=== PATIENT | male | born 1940 | race Caucasian/White ===

== ENCOUNTER 2017-03-23 17:12 | Inpatient (IN) | payer MEDICARE, BC ==
--- NOTE | 2017-03-23 17:53 | EDM.PDOC ---
ED HPI GENERAL MEDICAL PROBLEM - General Chief Complaint: General Stated Complaint: passed out/fell Time Seen by Provider: 03/23/17 17:30 Source of Information: Reports: Patient History Limitations: Reports: No Limitations - History of Present Illness INITIAL COMMENTS - FREE TEXT/NARRATIVE: Patient presents today to ER after a syncopal episode. He states he was out drilling holes in his [place] house and the "next thing I knew I was laying on the floor". Relates he had drilled about 6 holes, felt lightheaded while doing so. Does not believe he hit his head but has discomfort in his back and left wrist. States drank a pop after the event with eventual nausea and vomiting. Still feels lightheaded and nauseated. He denies any chest pain or shortness of breath. Not aware of any issues with his blood pressure. Relates that he had a bleeding ulcer a year ago and has intermittent blood in his stools since then but nothing for over a month. Stools have been normal consistency and color. He is no longer taking any PPIs. Is on coumadin for a remote blood clot. Otherwise, denies any health concerns. Onset: Today, Sudden Duration: Hour(s): Location: Reports: Back, Upper Extremity, Left Quality: Reports: Dull, Throbbing Severity: Mild Improves with: Reports: Rest Worsens with: Reports: Movement Associated Symptoms: Reports: Nausea/Vomiting, Syncope. Denies: Confusion, Chest Pain, Cough, Fever/Chills, Headaches, Shortness of Breath Left Lower Back Pain Score (Numeric/FACES): 7 Left Wrist Pain Score (Numeric/FACES): 7 - Related Data Allergies Allergy/AdvReac Type Severity Reaction Status Date / Time No Known Allergies Allergy Verified 12/12/15 09:09 Home Meds: Home Meds Ascorbic Acid [Vitamin C] 500 mg PO DAILY 12/11/15 [History] Aspirin [Halfprin] 81 mg PO DAILY 12/11/15 [History] Calcium Carbonate [Calcium] 500 mg PO DAILY 12/11/15 [History] Cholecalciferol (Vitamin D3) [Vitamin D3] 2,000 units PO DAILY 12/11/15 [History ] Warfarin [Coumadin] 7.5 mg PO DAILY 12/11/15 [History] Past Medical History HEENT History: Reports: Cataract 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 Gastrointestinal History: Reports: Hiatal Hernia Endocrine/Metabolic History: Reports: Hypoparathyroidism - Past Surgical History HEENT Surgical History: Reports: Cataract Surgery Endocrine Surgical History: Reports: Parathyroidectomy Musculoskeletal Surgical History: Reports: Knee Replacement Social & Family History - Tobacco Use Smoking Status *Q: Former Smoker Used Tobacco, but Quit: Yes Month Tobacco Last Used: 46 y.o - Caffeine Use Caffeine Use: Reports: Coffee - Recreational Drug Use Recreational Drug Use: No ED ROS GENERAL - Review of Systems Review Of Systems: See Below Constitutional: Denies: Fever, Chills HEENT: Denies: Ear Pain, Nose Pain, Throat Pain, Vertigo Respiratory: Denies: Shortness of Breath, Cough Cardiovascular: Reports: Lightheadedness. Denies: Chest Pain, Edema Endocrine: Reports: Fatigue GI/Abdominal: Reports: Nausea, Vomiting. Denies: Abdominal Pain, Black Stool, Bloody Stool : Reports: No Symptoms Musculoskeletal: Reports: Back Pain, Joint Pain Skin: Reports: Bruising, Wound (left side of low back) Neurological: Reports: Syncope, Weakness. Denies: Confusion, Headache ED EXAM, GENERAL - Physical Exam Exam: See Below Exam Limited By: No Limitations General Appearance: Alert, WD/WN, No Apparent Distress Eye Exam: Bilateral Eye: EOMI, Other (Patient's right pupil is irregular from previous cataract) Ears: Normal External Exam, Normal TMs Nose: Normal Inspection, Normal Mucosa, No Blood Throat/Mouth: Normal Inspection, Normal Oropharynx Head: Normocephalic Neck: Normal Inspection, Supple, Non-Tender Respiratory/Chest: No Respiratory Distress, Lungs Clear, Normal Breath Sounds Cardiovascular: Regular Rate, Rhythm, No Edema GI/Abdominal: Normal Bowel Sounds, Soft, Non-Tender Back Exam: Other (Tender to left lower lumbar region. Abrasion noted. No vertebral tenderness. ) Extremities: Other (bruising and swelling to left wrist, has fairly good range of motion ) Neurological: Alert, Oriented, CN II-XII Intact, No Motor/Sensory Deficits Psychiatric: Normal Affect, Normal Mood Skin Exam: Warm, Dry Course - Vital Signs Last Recorded V/S: Last Vital Signs Temp 97.5 F 03/23/17 17:13 Pulse 85 03/23/17 17:13 Resp 18 03/23/17 17:13 BP 95/44 L 03/23/17 17:13 Pulse Ox 98 03/23/17 17:13 - Orders/Labs/Meds Orders: Active Orders 24 hr Category Date Time Status Head wo Cont [CT] Stat Exams 03/23/17 17:25 Ordered Wrist 2V Lt [CR] Stat Exams 03/23/17 17:21 Ordered Labs: Laboratory Tests 03/23/17 03/23/17 03/23/17 Range/Units 17:30 17:30 17:30 WBC 11.1 H (5.0-10.0) 10^3/uL RBC 3.41 L (4.50-6.00) 10^6/uL Hgb 8.4 L (14.0-18.0) g/dL Hct 27.3 L (40.0-54.0) % MCV 80.1 L (82.0-94.0) fL MCH 24.6 L (27.0-32.0) pg MCHC 30.8 L (33.0-38.0) g/dL RDW Coeff of Jordin 14.5 (11.0-15.0) % Plt Count 245 (150-400) 10^3/uL Neut % (Auto) 79.6 (35-85) % Lymph % (Auto) 12.1 (10-55) % [place] % (Auto) 6.7 (0-16) % Eos % (Auto) 1.4 (0-5) % Baso % (Auto) 0.2 (0-3) % Neut # (Auto) 8.84 H (1.80-7.00) 10^3/uL Lymph # (Auto) 1.35 (1.00-4.80) 10^3/uL Fisher # (Auto) 0.75 (0.00-0.80) 10^3/uL Eos # (Auto) 0.16 (0.00-0.45) 10^3/uL Baso # (Auto) 0.02 10^3/uL PT 30.3 H (9.7-12.3) SEC INR 2.72 H (0.92-1.18) Sodium 142 (136-145) mEq/L Potassium 4.5 (3.5-5.0) mEq/L Chloride 106 (98-106) mEq/L Carbon Dioxide 25 (21-32) mmol/L BUN 22 H (7-18) mg/dL Creatinine 1.1 (0.7-1.3) mg/dL Est Cr Clr Drug Dosing 59.91 mL/min Estimated GFR (MDRD) > 60 (>=60) mL/min Glucose 117 H (75-99) mg/dL Calcium 8.5 (8.4-10.1) mg/dL Total Bilirubin 0.5 (0.0-1.0) mg/dL AST 25 (15-37) U/L ALT 28 (12-78) U/L Alkaline Phosphatase 88 (46-116) U/L Lactate Dehydrogenase 157 (100-190) U/L Creatine Kinase 88 (35-232) U/L Troponin I < 0.017 (0.00-0.06) ng/mL C-Reactive Protein < 0.2 L (0.2-0.8) mg/dL Total Protein 6.9 (6.4-8.2) g/dL Albumin 3.6 (3.4-5.0) g/dL - Re-Assessments/Exams Free Text/Narrative Re-Assessment/Exam: 03/23/17 17:57 EKG shows NSR. Hemoglobin 8.4. FOB negative. Departure - Departure Time of Disposition: 18:15 Disposition: Admitted As Inpatient 67 Condition: Fair Clinical Impression: Syncope, Anemia - Discharge Information Forms: ED Department Discharge - Problem List & Annotations (1) Anemia SNOMED Code(s): 310049311 Code(s): D64.9 - ANEMIA, UNSPECIFIED Status: Acute Priority: High Current Visit: Yes (2) Syncope SNOMED Code(s): 114544910 Code(s): R55 - SYNCOPE AND COLLAPSE Status: Acute Priority: High Current Visit: Yes Qualifiers: Encounter type: initial encounter - Problem List Review Problem List Initiated/Reviewed/Updated: Yes - My Orders Last 24 Hours: My Active Orders 03/23/17 17:21 Wrist 2V Lt [CR] Stat 03/23/17 17:25 Head wo Cont [CT] Stat - Assessment/Plan Admission H&P: Please use this note as an admission H&P Last 24 Hours: My Active Orders 03/23/17 17:21 Wrist 2V Lt [CR] Stat 03/23/17 17:25 Head wo Cont [CT] Stat Assessment:: Syncope Anemia Plan: Admit inpatient to Dr. Kelley. Will monitor neuro checks, repeat labs in am. FOBs x3. IV Protonix. IV NS at 75 ml/hr.
[2017-03-23 17:56] LABS: CHLORIDE,CL 106 mEq/L (98-106); SODIUM,NA 142 mEq/L (136-145)
[2017-03-23] MEDS ORDERED: Temazepam 15 MG Cap PO PRN (18:37)
[2017-03-23] MEDS ORDERED: Ondansetron 4 MG Tab.DIS PO PRN (18:37)
[2017-03-23] MEDS ORDERED: Sodium Chloride 0.9% 10 ML Syringe FLUSH PRN (18:37)
[2017-03-23] MEDS ORDERED: Ondansetron 4 MG/2 ML SDV IV PRN (18:37)
[2017-03-23] MEDS: Pantoprazole 40 MG Vial IVPUSH SCH (20:51)
[2017-03-23] MEDS: Acetaminophen 325 MG Tab PO PRN (20:54)
[2017-03-24] MEDS: Acetaminophen 325 MG Tab PO PRN ×3 (04:57→19:28)
[2017-03-24 07:11] LABS: CHLORIDE,CL 108 mEq/L (98-106); SODIUM,NA 142 mEq/L (136-145)
[2017-03-24] MEDS: Sodium Chloride 0.9% 1,000 ML IV SCH (07:43)
--- NOTE | 2017-03-24 11:54 | PCM.PN ---
- General Info Date of Service: 03/24/17 Admission Dx/Problem (Free Text): Anemia ?GI Bleed Functional Status: Reports: Pain Controlled, Tolerating Diet, Ambulating - Review of Systems General: Reports: Weakness, Fatigue. Denies: Fever HEENT: Reports: No Symptoms Pulmonary: Denies: Shortness of Breath, Cough, Wheezing Cardiovascular: Denies: Chest Pain, Edema, Lightheadedness Gastrointestinal: Denies: Abdominal Pain, Hematochezia, Melena, Nausea, Vomiting Genitourinary: Reports: No Symptoms Musculoskeletal: Reports: No Symptoms Skin: Reports: No Symptoms Neurological: Reports: No Symptoms - Patient Data Vitals - Most Recent: Last Vital Signs Temp 98.1 F 03/24/17 11:09 Pulse 70 03/24/17 11:09 Resp 16 03/24/17 11:09 BP 120/61 03/24/17 11:09 Pulse Ox 100 03/24/17 11:09 Weight - Most Recent: 205 lb 12.8 oz I&O - Last 24 Hours: Intake & Output 03/23/17 03/24/17 03/24/17 22:59 06:59 14:59 Intake Total 0 Balance 0 Lab Results Last 24 Hours: Laboratory Results - last 24 hr 03/24/17 03/24/17 03/24/17 Range/Units 06:55 06:55 07:00 WBC 6.9 (5.0-10.0) 10^3/uL RBC 3.01 L (4.50-6.00) 10^6/uL Hgb 7.3 L* (14.0-18.0) g/dL Hct 24.2 L (40.0-54.0) % MCV 80.4 L (82.0-94.0) fL MCH 24.3 L (27.0-32.0) pg MCHC 30.2 L (33.0-38.0) g/dL RDW Coeff of Jordin 14.5 (11.0-15.0) % Plt Count 203 (150-400) 10^3/uL Neut % (Auto) 63.4 (35-85) % Lymph % (Auto) 25.8 (10-55) % [place] % (Auto) 10.0 (0-16) % Eos % (Auto) 0.7 (0-5) % Baso % (Auto) 0.1 (0-3) % Neut # (Auto) 4.36 (1.80-7.00) 10^3/uL Lymph # (Auto) 1.78 (1.00-4.80) 10^3/uL [place] # (Auto) 0.69 (0.00-0.80) 10^3/uL Eos # (Auto) 0.05 (0.00-0.45) 10^3/uL Baso # (Auto) 0.01 10^3/uL Sodium 142 (136-145) mEq/L Potassium 3.6 (3.5-5.0) mEq/L Chloride 108 H (98-106) mEq/L Carbon Dioxide 24 (21-32) mmol/L BUN 21 H (7-18) mg/dL Creatinine 1.0 (0.7-1.3) mg/dL Est Cr Clr Drug Dosing 65.90 mL/min Estimated GFR (MDRD) > 60 (>=60) mL/min Glucose 116 H (75-99) mg/dL Calcium 7.9 L (8.4-10.1) mg/dL Blood Type O POSITIVE Gel Antibody Screen Negative Crossmatch See Detail Med Orders - Current: Current Medications Acetaminophen (Tylenol) 650 mg PO Q4H PRN PRN Reason: Pain (Mild 1-3)/fever Last Admin: 03/24/17 04:57 Dose: 650 mg Sodium Chloride (Normal Saline) 1,000 mls @ 75 mls/hr IV ASDIRECTED [facility] Last Admin: 03/24/17 07:43 Dose: 75 mls/hr Ondansetron HCl (Zofran Odt) 4 mg PO Q4H PRN PRN Reason: nausea, able to take PO Ondansetron HCl (Zofran) 4 mg IV Q4H PRN PRN Reason: Nausea/Vomiting Pantoprazole Sodium (Protonix Iv) 40 mg IVPUSH Q24H [facility] Last Admin: 03/23/17 20:51 Dose: 40 mg Sodium Chloride (Saline Flush) 10 ml FLUSH ASDIRECTED PRN PRN Reason: Keep Vein Open Temazepam (Restoril) 15 mg PO BEDTIME PRN PRN Reason: Sleep Warfarin Sodium (Coumadin) 7.5 mg PO DAILY@1200 [facility] - Exam General: Alert, Oriented HEENT: Mucous Membr. Moist/[place] Neck: Supple Lungs: Clear to Auscultation, Normal Respiratory Effort Cardiovascular: Regular Rate, Regular Rhythm GI/Abdominal Exam: Normal Bowel Sounds, Soft, Non-Tender - Problem List & Annotations (1) Anemia SNOMED Code(s): 580325797 Code(s): D64.9 - ANEMIA, UNSPECIFIED Status: Acute Priority: High Current Visit: Yes (2) Syncope SNOMED Code(s): 327417108 Code(s): R55 - SYNCOPE AND COLLAPSE Status: Acute Priority: High Current Visit: Yes Qualifiers: Encounter type: initial encounter - Problem List Review Problem List Initiated/Reviewed/Updated: Yes - My Orders Last 24 Hours: My Active Orders 03/23/17 19:05 Antiembolic Devices [RC] 1000,2200 [place] Hose [Antiembolic Hose] [OM.PC] Routine 03/24/17 07:00 RED BLOOD CELLS LP [BBK] Stat TYPE AND SCREEN [BBK] Stat 03/24/17 08:34 Blood Transfusion Reflex Orders [OM.PC] Routine Transfuse Red Blood Cells [COMM] Stat 03/24/17 08:36 Verify Patient Consent Obtain [RC] ASDIRECTED 03/24/17 11:45 Consult to Physician [CONS] Routine 03/24/17 11:46 Notify Provider Consults [RC] ASDIRECTED 03/24/17 12:00 Warfarin [Coumadin] 7.5 mg PO DAILY@1200 03/24/17 18:37 Carotid Comp [US] Stat 03/24/17 Dinner NPO After Midnight [Nothing per Oral After Midnight Diet] [DIET] 03/24/17 Lunch Clear Liquid Diet [DIET] 03/25/17 05:11 BASIC METABOLIC PANEL,BMP [CHEM] AM CBC WITH AUTO DIFF [HEME] AM 03/25/17 18:37 Echo Comp wo Cont [US] Stat - Assessment Assessment:: Weakness Anemia, ?GI Bleed Syncope - Plan Plan:: Patient states feeling better this am. Less lightheaded. Has been up to the bathroom without difficulty. No BMs as of yet to further test for blood. Denies abdominal pain. Blood pressure was low during the night at 87/50 while asleep, stable now at this time. Afebrile. Lab this am shows a hemoglobin of 7.3. Will type and screen and transfuse 2 units. Plan for EGD tomorrow. Continue IV Protonix and hold Coumadin. May need further clotting studies done to determine if Coumadin is warranted as he had a gastric ulcer last year and now recurring anemia and intermittent melena over the last year. Possible discharge home tomorrow.
[2017-03-24] MEDS ORDERED: Warfarin 2.5 MG Tab PO SCH (12:00)
[2017-03-24] MEDS: Pantoprazole 40 MG Vial IVPUSH SCH (19:25)
[2017-03-25] MEDS: Acetaminophen 325 MG Tab PO PRN (00:21)
[2017-03-25] MEDS: Sodium Chloride 0.9% 1,000 ML IV SCH (02:30)
[2017-03-25 07:24] LABS: CHLORIDE,CL 111 mEq/L (98-106); SODIUM,NA 144 mEq/L (136-145)
--- NOTE | 2017-03-25 08:28 | PCM.PN ---
- General Info Date of Service: 03/25/17 Admission Dx/Problem (Free Text): Anemia ?GI Bleed Functional Status: Reports: Pain Controlled, Tolerating Diet, Ambulating, Urinating. Denies: New Symptoms - Review of Systems General: Denies: Fever, Weakness, Fatigue - Patient Data Vitals - Most Recent: Last Vital Signs Temp 98.2 F 03/25/17 07:38 Pulse 65 03/25/17 07:38 Resp 18 03/25/17 07:38 BP 135/68 03/25/17 07:38 Pulse Ox 98 03/25/17 07:38 Weight - Most Recent: 205 lb 12.8 oz I&O - Last 24 Hours: Intake & Output 03/24/17 03/25/17 03/25/17 22:59 06:59 14:59 Intake Total 1350 Balance 1350 Lab Results Last 24 Hours: Laboratory Results - last 24 hr 03/24/17 03/24/17 03/25/17 Range/Units 06:55 07:00 05:11 WBC 6.5 (5.0-10.0) 10^3/uL RBC 3.60 L (4.50-6.00) 10^6/uL Hgb 9.0 L (14.0-18.0) g/dL Hct 29.4 L (40.0-54.0) % MCV 81.7 L (82.0-94.0) fL MCH 25.0 L (27.0-32.0) pg MCHC 30.6 L (33.0-38.0) g/dL RDW Coeff of Jordin 14.9 (11.0-15.0) % Plt Count 193 (150-400) 10^3/uL Neut % (Auto) 60.8 (35-85) % Lymph % (Auto) 27.4 (10-55) % [place] % (Auto) 9.6 (0-16) % Eos % (Auto) 2.0 (0-5) % Baso % (Auto) 0.2 (0-3) % Neut # (Auto) 3.98 (1.80-7.00) 10^3/uL Lymph # (Auto) 1.79 (1.00-4.80) 10^3/uL [place] # (Auto) 0.63 (0.00-0.80) 10^3/uL Eos # (Auto) 0.13 (0.00-0.45) 10^3/uL Baso # (Auto) 0.01 10^3/uL Sodium (136-145) mEq/L Potassium (3.5-5.0) mEq/L Chloride (98-106) mEq/L Carbon Dioxide (21-32) mmol/L BUN (7-18) mg/dL Creatinine (0.7-1.3) mg/dL Est Cr Clr Drug Dosing mL/min Estimated GFR (MDRD) (>=60) mL/min Glucose (75-99) mg/dL Calcium (8.4-10.1) mg/dL Iron 14 L (50-150) ug/dL TIBC 424 (261-478) ug/dL Unsaturated IBC 410 H (155-355) ug/dL Transferrin % Sat 3.3 L (20.0-50.0) % Ferritin 5 L (24-336) ng/mL Blood Type O POSITIVE Gel Antibody Screen Negative Crossmatch See Detail 03/25/17 Range/Units 05:11 WBC (5.0-10.0) 10^3/uL RBC (4.50-6.00) 10^6/uL Hgb (14.0-18.0) g/dL Hct (40.0-54.0) % MCV (82.0-94.0) fL MCH (27.0-32.0) pg MCHC (33.0-38.0) g/dL RDW Coeff of Jordin (11.0-15.0) % Plt Count (150-400) 10^3/uL Neut % (Auto) (35-85) % Lymph % (Auto) (10-55) % [place] % (Auto) (0-16) % Eos % (Auto) (0-5) % Baso % (Auto) (0-3) % Neut # (Auto) (1.80-7.00) 10^3/uL Lymph # (Auto) (1.00-4.80) 10^3/uL [place] # (Auto) (0.00-0.80) 10^3/uL Eos # (Auto) (0.00-0.45) 10^3/uL Baso # (Auto) 10^3/uL Sodium 144 (136-145) mEq/L Potassium 3.8 (3.5-5.0) mEq/L Chloride 111 H (98-106) mEq/L Carbon Dioxide 25 (21-32) mmol/L BUN 15 (7-18) mg/dL Creatinine 0.9 (0.7-1.3) mg/dL Est Cr Clr Drug Dosing 73.23 mL/min Estimated GFR (MDRD) > 60 (>=60) mL/min Glucose 95 (75-99) mg/dL Calcium 7.7 L (8.4-10.1) mg/dL Iron (50-150) ug/dL TIBC (261-478) ug/dL Unsaturated IBC (155-355) ug/dL Transferrin % Sat (20.0-50.0) % Ferritin (24-336) ng/mL Blood Type Gel Antibody Screen Crossmatch Med Orders - Current: Current Medications Acetaminophen (Tylenol) 650 mg PO Q4H PRN PRN Reason: Pain (Mild 1-3)/fever Last Admin: 03/25/17 00:21 Dose: 650 mg Sodium Chloride (Normal Saline) 1,000 mls @ 75 mls/hr IV ASDIRECTED [facility] Last Admin: 03/25/17 02:30 Dose: 75 mls/hr Ondansetron HCl (Zofran Odt) 4 mg PO Q4H PRN PRN Reason: nausea, able to take PO Ondansetron HCl (Zofran) 4 mg IV Q4H PRN PRN Reason: Nausea/Vomiting Pantoprazole Sodium (Protonix Iv) 40 mg IVPUSH Q24H [facility] Last Admin: 03/24/17 19:25 Dose: 40 mg Sodium Chloride (Saline Flush) 10 ml FLUSH ASDIRECTED PRN PRN Reason: Keep Vein Open Temazepam (Restoril) 15 mg PO BEDTIME PRN PRN Reason: Sleep Warfarin Sodium (Coumadin) 7.5 mg PO DAILY@1200 [facility] - Assessment Assessment:: Weakness Anemia, ?GI Bleed Syncope - Plan Plan:: Patient states feeling better this am. Less lightheaded. Has been up to the bathroom without difficulty. No BMs as of yet to further test for blood. Denies abdominal pain. Blood pressure was low during the night at 87/50 while asleep, stable now at this time. Afebrile. Lab this am shows a hemoglobin of 7.3. Will type and screen and transfuse 2 units. Plan for EGD tomorrow. Continue IV Protonix and hold Coumadin. May need further clotting studies done to determine if Coumadin is warranted as he had a gastric ulcer last year and now recurring anemia and intermittent melena over the last year. Possible discharge home tomorrow.
--- NOTE | 2017-03-25 14:06 | PCM.DCSUM1 ---
Discharge Summary - Hospital Course HPI Initial Comments: Collin is a pleasant 77 year old male who was admitted to the hospital from the ED on 03/23/2017 after a syncopal episode. He was reportedly out ice fishing and drilling holes and next thing he knew he "woke up on the ice." He reportedly had propane heater and propane ice auger going at the time of incident. He did have some lightheadedness while drilling ice holes. He was brought to the ED by his friend. He was found to have a hemoglobin of 8.4 on admission. He had a bleeding ulcer about a year ago and reported he has had intermittent blood in his stool since then. He has stopped taking his PPI. He reportedly has been on Coumadin for about 40 years. He was originally started on it for a DVT and has been on it ever since. He had a carotid US, echocardiogram, head CT, left wrist Xray, and EKG. Carotid US and Echo results pending at time of discharge. Head CT was negative. Left wrist xray showed no acute fracture. EKG showed NSR. Patient's hemoglobin dropped to 7.3 on 03/24/2017. Patient was transfused 2 units PRBCs. He underwent EGD on 03/25/2017 and no active bleeding was identified. See Dr. Nolan's operative note. Patient's iron stores low. At time of discharge, patient reports he is feeling well. He reports that he feels like he has more energy after recieving blood. His hemoglobin was stable at 9.0. Patient will be discharged home on protonix daily, as well as iron BID. His Coumadin will be discontinued. He will follow up with Dr. Nolan on Tuesday. - Discharge Data Discharge Date: 03/25/17 Discharge Disposition: Home, Self-Care 01 Condition: Good - Discharge Diagnosis/Problem(s) (1) Anemia SNOMED Code(s): 441044018 ICD Code: D64.9 - ANEMIA, UNSPECIFIED Status: Acute Priority: High Current Visit: Yes Qualifiers: Anemia type: iron deficiency Iron deficiency anemia type: chronic blood loss Qualified Code(s): D50.0 - Iron deficiency anemia secondary to blood loss (chronic) (2) Syncope SNOMED Code(s): 402893166 ICD Code: R55 - SYNCOPE AND COLLAPSE Status: Acute Priority: High Current Visit: Yes Qualifiers: Encounter type: initial encounter - Patient Summary/Data Consults: Consultations 03/24/17 11:45 Consult to Physician [CONS] Routine - Patient Instructions Diet: Usual Diet as Tolerated Activity: As Tolerated Notify Provider of: Fever, Increased Pain, Swelling and Redness, Drainage, Nausea and/or Vomiting - Discharge Plan Prescriptions/Med Rec: Ferrous Sulfate [Feosol] 325 mg PO BIDMEALS 90 Days #180 tablet Pantoprazole Sodium [Protonix] 40 mg PO DAILY #90 tablet. Home Medications: Home Meds Ascorbic Acid [Vitamin C] 500 mg PO DAILY 12/11/15 [History] Aspirin [Halfprin] 81 mg PO DAILY 12/11/15 [History] Calcium Carbonate [Calcium] 500 mg PO DAILY 12/11/15 [History] Cholecalciferol (Vitamin D3) [Vitamin D3] 2,000 units PO DAILY 12/11/15 [History ] Ferrous Sulfate [Feosol] 325 mg PO BIDMEALS 90 Days #180 tablet 03/25/17 [Rx] Pantoprazole Sodium [Protonix] 40 mg PO DAILY #90 tablet. 03/25/17 [Rx] Patient Handouts: Iron Deficiency Anemia, Adult Forms: ED Department Discharge Referrals: Domingo Kelley MD [Primary Care Provider] - - Discharge Summary/Plan Comment Discharge Summary/Plan Comment: Start iron supplement 325 mg BID with breakfast and supper Iron will make stools black and can cause constipation. Push fluids. May need OTC stool softener. Start protonix daily. STOP coumadin Follow up with Dr. Nolan on Tuesday as scheduled. Will discuss repeat EGD at that time. 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 He would like to go home. Does not have any complaints. Functional Status: Reports: Pain Controlled, Tolerating Diet, Ambulating, Urinating. Denies: New Symptoms - Review of Systems General: Reports: No Symptoms. Denies: Fever, Weakness, Fatigue HEENT: Reports: No Symptoms. Denies: Sinus Congestion, Sore Throat, Rhinitis Pulmonary: Reports: No Symptoms. Denies: Shortness of Breath, Cough, Sputum, Hemoptysis, Wheezing Cardiovascular: Reports: No Symptoms. Denies: Chest Pain, Palpitations, Dyspnea on Exertion, Edema, Lightheadedness Gastrointestinal: Reports: No Symptoms. Denies: Abdominal Pain, Constipation, Decreased Appetite, Diarrhea, Hematochezia, Melena, Nausea, Vomiting Genitourinary: Reports: No Symptoms. Denies: Dysuria, Frequency, Urgency Musculoskeletal: Reports: No Symptoms Skin: Reports: No Symptoms Neurological: Reports: No Symptoms. Denies: Confusion, Dizziness, Headache Psychiatric: Reports: No Symptoms - Patient Data Vitals - Most Recent: Last Vital Signs Temp 98.2 F 03/25/17 07:38 Pulse 65 03/25/17 07:38 Resp 18 03/25/17 07:38 BP 135/68 03/25/17 07:38 Pulse Ox 98 03/25/17 07:38 Weight - Most Recent: 205 lb 12.8 oz I&O - Last 24 hours: Intake & Output 03/24/17 03/25/17 03/25/17 22:59 06:59 14:59 Intake Total 1350 Balance 1350 Lab Results - Last 24 hrs: Laboratory Results - last 24 hr 03/24/17 03/24/17 03/25/17 Range/Units 06:55 07:00 05:11 WBC 6.5 (5.0-10.0) 10^3/uL RBC 3.60 L (4.50-6.00) 10^6/uL Hgb 9.0 L (14.0-18.0) g/dL Hct 29.4 L (40.0-54.0) % MCV 81.7 L (82.0-94.0) fL MCH 25.0 L (27.0-32.0) pg MCHC 30.6 L (33.0-38.0) g/dL RDW Coeff of Jordin 14.9 (11.0-15.0) % Plt Count 193 (150-400) 10^3/uL Neut % (Auto) 60.8 (35-85) % Lymph % (Auto) 27.4 (10-55) % Bethel % (Auto) 9.6 (0-16) % Eos % (Auto) 2.0 (0-5) % Baso % (Auto) 0.2 (0-3) % Neut # (Auto) 3.98 (1.80-7.00) 10^3/uL Lymph # (Auto) 1.79 (1.00-4.80) 10^3/uL Bethel # (Auto) 0.63 (0.00-0.80) 10^3/uL Eos # (Auto) 0.13 (0.00-0.45) 10^3/uL Baso # (Auto) 0.01 10^3/uL Sodium (136-145) mEq/L Potassium (3.5-5.0) mEq/L Chloride (98-106) mEq/L Carbon Dioxide (21-32) mmol/L BUN (7-18) mg/dL Creatinine (0.7-1.3) mg/dL Est Cr Clr Drug Dosing mL/min Estimated GFR (MDRD) (>=60) mL/min Glucose (75-99) mg/dL Calcium (8.4-10.1) mg/dL Iron 14 L (50-150) ug/dL TIBC 424 (261-478) ug/dL Unsaturated IBC 410 H (155-355) ug/dL Transferrin % Sat 3.3 L (20.0-50.0) % Ferritin 5 L (24-336) ng/mL Crossmatch See Detail 03/25/17 Range/Units 05:11 WBC (5.0-10.0) 10^3/uL RBC (4.50-6.00) 10^6/uL Hgb (14.0-18.0) g/dL Hct (40.0-54.0) % MCV (82.0-94.0) fL MCH (27.0-32.0) pg MCHC (33.0-38.0) g/dL RDW Coeff of Jordin (11.0-15.0) % Plt Count (150-400) 10^3/uL Neut % (Auto) (35-85) % Lymph % (Auto) (10-55) % Bethel % (Auto) (0-16) % Eos % (Auto) (0-5) % Baso % (Auto) (0-3) % Neut # (Auto) (1.80-7.00) 10^3/uL Lymph # (Auto) (1.00-4.80) 10^3/uL Bethel # (Auto) (0.00-0.80) 10^3/uL Eos # (Auto) (0.00-0.45) 10^3/uL Baso # (Auto) 10^3/uL Sodium 144 (136-145) mEq/L Potassium 3.8 (3.5-5.0) mEq/L Chloride 111 H (98-106) mEq/L Carbon Dioxide 25 (21-32) mmol/L BUN 15 (7-18) mg/dL Creatinine 0.9 (0.7-1.3) mg/dL Est Cr Clr Drug Dosing 73.23 mL/min Estimated GFR (MDRD) > 60 (>=60) mL/min Glucose 95 (75-99) mg/dL Calcium 7.7 L (8.4-10.1) mg/dL Iron (50-150) ug/dL TIBC (261-478) ug/dL Unsaturated IBC (155-355) ug/dL Transferrin % Sat (20.0-50.0) % Ferritin (24-336) ng/mL Crossmatch ELIN Results - Last 24 hrs: Microbiology 03/25/17 09:25 Occult Blood - Preliminary Stool / Feces Med Orders - Current: Current Medications Acetaminophen (Tylenol) 650 mg PO Q4H PRN PRN Reason: Pain (Mild 1-3)/fever Last Admin: 03/25/17 00:21 Dose: 650 mg Sodium Chloride (Normal Saline) 1,000 mls @ 75 mls/hr IV ASDIRECTED [facility] Last Admin: 03/25/17 02:30 Dose: 75 mls/hr Ondansetron HCl (Zofran Odt) 4 mg PO Q4H PRN PRN Reason: nausea, able to take PO Ondansetron HCl (Zofran) 4 mg IV Q4H PRN PRN Reason: Nausea/Vomiting Pantoprazole Sodium (Protonix Iv) 40 mg IVPUSH Q24H [facility] Last Admin: 03/24/17 19:25 Dose: 40 mg Sodium Chloride (Saline Flush) 10 ml FLUSH ASDIRECTED PRN PRN Reason: Keep Vein Open Temazepam (Restoril) 15 mg PO BEDTIME PRN PRN Reason: Sleep Warfarin Sodium (Coumadin) 7.5 mg PO DAILY@1200 [facility] - Exam General: Reports: Alert, Oriented, No Acute Distress Neck: Reports: Supple Lungs: Reports: Clear to Auscultation, Normal Respiratory Effort Cardiovascular: Reports: Regular Rate, Regular Rhythm GI/Abdominal Exam: Normal Bowel Sounds, Soft, Non-Tender, No Organomegaly, No Distention, No Abnormal Bruit, No Mass, Pelvis Stable, Hernia Back Exam: Reports: Normal Inspection, Full Range of Motion Extremities: Normal Inspection, Normal Range of Motion, Non-Tender, No Pedal Edema, Normal Capillary Refill Skin: Reports: Warm, Dry, Intact Neurological: Reports: No New Focal Deficit Psy/Mental Status: Reports: Alert, Normal Affect, Normal Mood *Q Meaningful Use (DIS) - VTE *Q VTE Criteria *Q: - Stroke *Q Stroke Criteria *Q: - AMI *Q AMI Criteria *Q:
--- NOTE | 2017-03-25 14:08 | OR ---
DATE OF OPERATION: 03/25/2017 PREOPERATIVE DIAGNOSIS: ANEMIA. POSTOPERATIVE DIAGNOSIS: ANEMIA. SURGEON: Alen Nolan MD PROCEDURE: EGD. 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 COMPLICATIONS: None. SPECIMEN: None. FINDINGS: 1. Full-length EGD. 2. Heterotopic gastric tissue, duodenal bulb. 3. Small to mild hiatal hernia with spontaneous reflux. 4. And no visible bleeding sites. RECOMMENDATIONS: Ongoing medical followup. INDICATIONS: A patient is a 76-year-old on Coumadin for a history of a prior DVT. He came in with a syncopal episode, and was found to have a hemoglobin of 7. He say he does not ever have any bloody or tarry stools. His initial stool Hemoccult was negative. We elected to proceed with an EGD. DESCRIPTION OF PROCEDURE: The patient was prepped and draped, placed in left lateral decubitus position. A lubricated Olympus gastroscope was inserted and easily advanced to the cricopharyngeus area and intubated in the esophagus. Esophageal lining was benign in its entire course. The Z-line was crisp and sharp around 39 cm. There was a small hiatal hernia with minimal reflux present there were no distal esophagitis, stricturing, ulceration, Post's changes. The scope was advanced into the stomach through the pylorus into the second portion of duodenum. The second portion duodenum looked fine. The duodenal bulb, has what appears to be a significant amount of heterotopic gastric tissue which was slightly inflamed at the patient is not fluid reversed off his Coumadin we elected not to biopsy him at the current time. The scope was brought back into the stomach and retroflexed. The upper fundus and cardia appeared benign. Throughout the length of the rest of the fundus and antrum on direct visualization I found no signs of peptic ulcer disease, bleeding sites, lesion, mass, or otherwise. Air was suctioned, scope was removed without complication. LATANYA/MACY /[id number]
[2017-03-25] MEDS ORDERED: Propofol 200 MG/20 ML SDV IV ONE (16:39)
[2017-03-25 20:19] VITALS: BP 152/70
== END 2017-03-25 16:40 | disposition home or self-care (01) | DRG 812 ==
LOC: CC.ED 17:12 → CC.MS 18:21
PROVIDERS: ADMIT Physician Assistant Medical; ATTEND General Practice
PROC: 30233N1 Transfusion of Nonautologous Red Blood Cells into Peripheral Vein, Percutaneous Approach (ICD-10-PCS; 2017-03-24)
PROC: 0DJ08ZZ Inspection of Upper Intestinal Tract, Via Natural or Artificial Opening Endoscopic (ICD-10-PCS; principal; 2017-03-25)
DX: D50.0 Iron deficiency anemia secondary to blood loss (chronic) (principal); D64.9 Anemia, unspecified; M25.532 Pain in left wrist; W19.XXXA Unspecified fall, initial encounter; R55 Syncope and collapse; R53.1 Weakness; Z86.718 Personal history of other venous thrombosis and embolism; Z79.01 Long term (current) use of anticoagulants; E20.9 Hypoparathyroidism, unspecified; K21.9 Gastro-esophageal reflux disease without esophagitis; K44.9 Diaphragmatic hernia without obstruction or gangrene; Z87.891 Personal history of nicotine dependence; Z79.82 Long term (current) use of aspirin
CPT/HCPCS: 00731; 36415; 36430; 70450; 73100-LT; 80048; 80053; 82270; 82550; 82728; 83540; 83550; 83615; 84484; 85025; 85610; 86140; 86850; 86900; 86901; 86920; 86922; 93005; 93010; 93306; 93880; 99285; A9270-GY; C9113; J2704; J7030; P9016

== ENCOUNTER 2017-09-20 19:46 | Emergency (ER) | payer MEDICARE, BC ==
[2017-09-20] MEDS ORDERED: SODIUM CHLORIDE 0.9% IRR PRN (19:54)
[2017-09-20] MEDS: Sodium Chloride 0.9% 1,000 ML ONE (19:55)
[2017-09-20] MEDS: Tetracaine HCl/PF 0.5% 4 ML Bottle EYELF ONE (19:55)
[2017-09-20 20:12] VITALS: BP 148/80
--- NOTE | 2017-09-20 20:35 | EDM.PDOC ---
ED HPI GENERAL MEDICAL PROBLEM - General Chief Complaint: Eye Problems Stated Complaint: eye injury Time Seen by Provider: 09/20/17 20:00 Source of Information: Reports: Patient History Limitations: Reports: No Limitations - History of Present Illness INITIAL COMMENTS - FREE TEXT/NARRATIVE: Patient presents to ER with complaints of left eye pain. Was spraying Roberto, a chemical for his evergreen trees, earlier today. Had washed his hands but states didn't obviously get it all off. Was on his way to [place], [place] in his hand picker and rubbed his eye due to an irritation and knew immediately that he got chemical in his eye. Did stop in [place] and rinsed his eye out with tap water and says it did feel better after that so proceeded to drive to [place]. Incident occurred around 4 pm today. Over the last 4 hours, the pain has gotten more intense. He relates he doesn't have much vision out of his right eye due to a "botched cataract surgery" and glaucoma. Now has blurred vision in his left eye but admits he did drive himself here. Last tetanus shot many years ago. 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 Treatments (eye rinse) Left Eye Pain Score (Numeric/FACES): 8 - Related Data Allergies Allergy/AdvReac Type Severity Reaction Status Date / Time No Known Allergies Allergy Verified 09/20/17 20:12 Home Meds: Home Meds Ascorbic Acid [Vitamin C] 500 mg PO DAILY 12/11/15 [History] Aspirin [Halfprin] 81 mg PO DAILY 12/11/15 [History] Calcium Carbonate [Calcium] 500 mg PO DAILY 12/11/15 [History] Cholecalciferol (Vitamin D3) [Vitamin D3] 2,000 units PO DAILY 12/11/15 [History ] Latanoprost 1 drop DAILY 09/20/17 [History] Timolol Maleate [Timoptic 0.5% Ophth Soln] 1 drop DAILY 09/20/17 [History] cycloSPORINE [Restasis] 1 drop BID 09/20/17 [History] Past Medical History HEENT History: Reports: Cataract 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 Gastrointestinal History: Reports: Hiatal Hernia Endocrine/Metabolic History: Reports: Hypoparathyroidism - Past Surgical History HEENT Surgical History: Reports: Cataract Surgery Endocrine Surgical History: Reports: Parathyroidectomy Musculoskeletal Surgical History: Reports: Knee Replacement Social & Family History - Tobacco Use Smoking Status *Q: Former Smoker - Caffeine Use Caffeine Use: Reports: Soda ED ROS GENERAL - Review of Systems Review Of Systems: See Below Constitutional: Denies: Fever, Chills, Malaise, Weakness HEENT: Reports: Eye Discharge, Eye Pain, Vision Change Respiratory: Reports: No Symptoms Cardiovascular: Reports: No Symptoms GI/Abdominal: Reports: No Symptoms Skin: Reports: No Symptoms ED EXAM GENERAL W FULL EYE - Physical Exam Exam: See Below Exam Limited By: No Limitations General Appearance: Alert, WD/WN, Mild Distress ED EYE w/ Add Procedure - Eye Procedure Alcaine Drops Administered: Yes Eye Irrigated w/ Saline (ccs): 1,000 Antibiotic Oinment/Drps Admin: Left Eye Progress: Left eye irrigated with a liter of normal saline. Tetracaine instilled and flourescein stain applied. Has large corneal injury over the iris region of his left eye. Vision has improved after the irrigation. Tobradex 2 drops instilled to eye. Course - Vital Signs Last Recorded V/S: Last Vital Signs Temp 97.2 F 09/20/17 19:50 Pulse 94 09/20/17 19:50 Resp 16 09/20/17 19:50 BP 148/80 H 09/20/17 19:50 Pulse Ox 95 09/20/17 19:50 - Orders/Labs/Meds Orders: Active Orders 24 hr Category Date Time Status Sodium Chloride 0.9% Med 09/20/17 19:54 Active 1,000 ml IRR ASDIRECTED PRN Medication Orders Sodium Chloride (Sodium Chloride 0.9%) 1,000 ml IRR ASDIRECTED PRN PRN Reason: Irritability Meds: Medications Generic Name Dose Route Start Last Admin Trade Name Freq PRN Reason Stop Dose Admin Sodium Chloride 1,000 ml 09/20/17 19:54 Sodium Chloride 0.9% IRR ASDIRECTED PRN Irritability Discontinued Medications Generic Name Dose Route Start Last Admin Trade Name Freq PRN Reason Stop Dose Admin Sodium Chloride Confirm 09/20/17 19:49 09/20/17 19:55 Normal Saline Administered 09/20/17 19:50 999 mls/hr Dose Administration 1,000 mls @ as directed .ROUTE .STK-MED ONE Tetracaine HCl 1 ml 09/20/17 19:55 09/20/17 19:55 Tetracaine 0.5% Steri-Unit Farnaz EYELF 09/20/17 19:56 3 drop ASDIRECTED ONE Administration - Re-Assessments/Exams Free Text/Narrative Re-Assessment/Exam: 09/20/17 20:34 Poison control contacted by nurse and recommended a liter of NS rinse and check eye for abrasion. Start antibiotic drops. 09/20/17 20:[address] Clarke, cyber security traffic control signaler at [place]. Advised to utilize Tobradex QID and Erythromycin at night. Follow up with Dr. Stokes on if possible. Departure - Departure Time of Disposition: 20:59 Disposition: Home, Self-Care 01 Condition: Fair Clinical Impression: Corneal abrasion - Discharge Information Forms: ED Department Discharge Additional Instructions: 1. Sun protection 2. Tobradex 2 drops four times per day to left eye 3. Erythromycin ointment at night. 4. May use other glaucoma drops 5. Follow up with Dr. Stokes on if possible. [phone] - My Orders Last 24 Hours: My Active Orders 09/20/17 19:54 Sodium Chloride 0.9% 1,000 ml IRR ASDIRECTED PRN - Assessment/Plan Last 24 Hours: My Active Orders 09/20/17 19:54 Sodium Chloride 0.9% 1,000 ml IRR ASDIRECTED PRN
[2017-09-20] MEDS: Erythromycin Base 0.5% Ophth Oint 3.5 GM Tube EYELF SCH (21:06)
[2017-09-20] MEDS: Diphtheria,Pertussis(Acell),Tetanus Vaccine 0.5 ML Syringe IM ONE (21:08)
[2017-09-21] MEDS ORDERED: Dexamethasone/Tobramycin 0.1-0.3% Ophth Susp 2.5 ML Bottle EYELF SCH (08:00)
[2017-09-21] MEDS ORDERED: Tobramycin 0.3% Ophth Drops 5 ML Bottle EYELF SCH (08:00)
== END 2017-09-20 21:15 | disposition home or self-care (01) ==
LOC: CC.ED 19:46
DX: S05.02XA Injury of conjunctiva and corneal abrasion without foreign body, left eye, initial encounter (principal); Z23 Encounter for immunization; Z87.891 Personal history of nicotine dependence; X58.XXXA Exposure to other specified factors, initial encounter
CPT/HCPCS: 90471; 90715; 99284; A9270-GY; J7030

== ENCOUNTER 2021-06-28 09:00 | Emergency (ER) | payer MEDICARE, BC ==
[2021-06-28 09:03] VITALS: BP 168/90; PULSE 87
[2021-06-28] MEDS ORDERED: Distilled Water Ophth Irrig Soln 120 ML Bottle EYELF ONE (09:14)
[2021-06-28] MEDS ORDERED: Erythromycin Base 0.5% Ophth Oint 3.5 GM Tube EYELF ONE (09:15)
[2021-06-28] MEDS ORDERED: Tetracaine HCl/PF 0.5% 4 ML Bottle EYELF ONE (09:16)
[2021-06-28] MEDS ORDERED: Fluorescein 1 MG Ophth Strip EYELF ONE (09:17)
== END 2021-06-28 09:28 | disposition home or self-care (01) ==
LOC: CC.ED 09:00
DX: S05.02XA Injury of conjunctiva and corneal abrasion without foreign body, left eye, initial encounter (principal); Z79.82 Long term (current) use of aspirin; Z87.891 Personal history of nicotine dependence; W22.8XXA Striking against or struck by other objects, initial encounter
CPT/HCPCS: 99283; A9270-GY

== ENCOUNTER → 2022-07-16 | Day surgery (SDC) | payer MEDICARE, BC ==
[~2022-07-16] MED LIST: Ketamine 200 MG/20 ML MDV ONE; Lactated Ringers 1,000 ML IV SCH; Lidocaine 2% 20 ML MDV ONE; Propofol 200 MG/20 ML SDV ONE; fentaNYL 50 MCG/ML SDV ONE
[2022-07-16 12:19] VITALS: BP 146/62; PULSE 54
== END ==
LOC: CC.SDS 09:38
PROVIDERS: ATTEND Family Medicine
DX: Z12.11 Encounter for screening for malignant neoplasm of colon (principal); K29.80 Duodenitis without bleeding; K29.50 Unspecified chronic gastritis without bleeding; K57.30 Diverticulosis of large intestine without perforation or abscess without bleeding; D64.9 Anemia, unspecified; E55.9 Vitamin D deficiency, unspecified; R53.83 Other fatigue; R63.4 Abnormal weight loss; K31.89 Other diseases of stomach and duodenum; R06.02 Shortness of breath; I08.0 Rheumatic disorders of both mitral and aortic valves; E78.5 Hyperlipidemia, unspecified; M19.90 Unspecified osteoarthritis, unspecified site; N40.1 Benign prostatic hyperplasia with lower urinary tract symptoms; R35.1 Nocturia; Z79.899 Other long term (current) drug therapy; Z87.891 Personal history of nicotine dependence; Z80.0 Family history of malignant neoplasm of digestive organs; Z68.28 Body mass index [BMI] 28.0-28.9, adult
CPT/HCPCS: 00813; 87081; 88305; 99100; J2704; J3010; J3490; J7120